=== PATIENT | female | born 2000 | race Two or more races ===

== ENCOUNTER 2022-07-04 18:10 | Emergency (ER) | payer MEDICAID ==
[~2022-07-04] VITALS: Ht 157.5 cm; Wt 58.5 kg
[2022-07-04] MEDS ORDERED: BENZ100C19 PO (21:15)
[2022-07-04] MEDS ORDERED: DEXT1SYP9 PO (21:15)
[2022-07-04] MEDS ORDERED: DexAMETHasone SOD PHOS 4 MG/1ML SDV INJ IM ONE (21:45)
[2022-07-04 22:10] VITALS: BP 101/64
== END 2022-07-04 22:10 | disposition home or self-care (01) ==
LOC: ER 18:10
DX: B34.9 Viral infection, unspecified (principal)
CPT/HCPCS: 71046; 96372; 99283; J1100

== ENCOUNTER 2023-09-28 16:06 | Emergency (ER) | payer MEDICAID ==
[~2023-09-28] VITALS: Ht 157.5 cm; Wt 54.1 kg
[~2023-09-28 16:06] MED LIST: BENZ100C19 PO; DEXT1SYP9 PO
[2023-09-28 16:18] VITALS: BP 98/65; PULSE 77; RESP 16; O2SAT 97
[2023-09-28 17:09] LABS: Urine Bacteria FEW /hpf (None Seen); Urine Blood Negative /uL (Negative); Urine Clarity Clear (Clear); Urine Color Colorless (Yellow); Urine Protein, UAD Negative (Negative); Urine Specific Gravity 1.008 (1.001-1.035); Urine Urobilinogen Normal (Negative); Urine WBC <1 /hpf (0 - 5)
[2023-09-28] MEDS ORDERED: NITR-52 PO (17:47)
== END 2023-09-28 20:39 | disposition home or self-care (01) ==
LOC: ER 16:06
DX: O98.819 Other maternal infectious and parasitic diseases complicating pregnancy, unspecified trimester (principal); R10.2 Pelvic and perineal pain; R82.71 Bacteriuria; Z79.899 Other long term (current) drug therapy; Z3A.01 Less than 8 weeks gestation of pregnancy
CPT/HCPCS: 36415; 81001; 84702

== ENCOUNTER 2023-10-01 16:12 | Emergency (ER) | payer MEDICAID ==
[~2023-10-01] VITALS: Ht 157.5 cm; Wt 55.2 kg
[~2023-10-01 16:12] MED LIST changes: +NITR-52 PO
[2023-10-01 16:42] VITALS: BP 116/59; PULSE 60; RESP 20; O2SAT 98
[2023-10-01 17:25] LABS: Urine Bacteria NONE SEEN /hpf (None Seen); Urine Blood Negative /uL (Negative); Urine Clarity Clear (Clear); Urine Color Colorless (Yellow); Urine Protein, UAD Negative (Negative); Urine Specific Gravity 1.006 (1.001-1.035); Urine Urobilinogen Normal (Negative); Urine WBC <1 /hpf (0 - 5)
== END 2023-10-01 20:02 | disposition home or self-care (01) ==
LOC: ER 16:12
DX: O20.9 Hemorrhage in early pregnancy, unspecified (principal); R10.2 Pelvic and perineal pain; Z3A.01 Less than 8 weeks gestation of pregnancy; Z79.899 Other long term (current) drug therapy
CPT/HCPCS: 36415; 81001; 84702

== ENCOUNTER 2023-10-16 03:57 | Emergency (ER) | payer MEDICAID ==
[~2023-10-16] VITALS: Ht 160 cm; Wt 54.7 kg
[2023-10-16 04:49] LABS: Basophils # (auto) 0 10 ^3/uL (0-0.2); Basophils % (auto) 0.5 % (0.0-2.0); Eosinophils # (auto) 0.1 10 ^3/uL (0-0.8); Eosinophils % (auto) 1.3 % (0.0-7.0); Hematocrit 37.2 % (36.0-46.0); Hemoglobin 12.6 g/dL (12.2-16.2); Lymphocytes # (auto) 2.9 10 ^3/uL (0.4-5.4); Lymphocytes % (auto) 30.8 % (10.0-50.0); Mean Corpuscular Hemoglobin 30.8 pg (28.0-32.0); Mean Corpuscular Volume 90.7 fL (80.0-100.0); Monocytes # (auto) 0.6 10 ^3/uL (0-1.3); Monocytes % (auto) 6.4 % (0.0-12.0); Neutrophils # (auto) 5.7 10 ^3/uL (1.6-8.6); White Blood Cell 9.3 10^3/uL (4.4-10.8)
[2023-10-16 05:00] LABS: Urine Bacteria NONE SEEN /hpf (None Seen); Urine Blood Negative /uL (Negative); Urine Clarity Clear (Clear); Urine Color Colorless (Yellow); Urine Protein, UAD Negative (Negative); Urine Specific Gravity 1.002 (1.001-1.035); Urine Urobilinogen Normal (Negative); Urine WBC <1 /hpf (0 - 5); Urine pH 6.5 (5.0-8.0)
[2023-10-16 05:07] LABS: Alanine Aminotransferase 17 U/L (7-40); Albumin 4.6 g/dL (3.2-4.8); Alkaline Phosphatase 58 U/L (46-116); Anion Gap 7 (5-15); Aspartate Aminotransferase 16 U/L (13-40); BUN/Creatinine Ratio 22.4 (10.0-20.0); Bilirubin, Total 0.4 mg/dL (0.2-1.0); Blood Urea Nitrogen 11 mg/dL (9-23); Calcium 10.1 mg/dL (8.7-10.4); Carbon Dioxide 26 mmol/L (20-30); Chloride 102 mmol/L (98-107); Glucose 89 mg/dL (74-106); Potassium 3.8 mmol/L (3.5-5.1); Sodium 135 mmol/L (136-145); Total Protein 7.4 g/dL (5.7-8.2)
[2023-10-16 09:33] VITALS: BP 120/70; PULSE 71; RESP 18; TEMP 98.2; O2SAT 94
== END 2023-10-16 09:55 | disposition home or self-care (01) ==
LOC: ER 03:57
DX: O20.8 Other hemorrhage in early pregnancy (principal); R10.2 Pelvic and perineal pain; Z3A.01 Less than 8 weeks gestation of pregnancy
CPT/HCPCS: 36415; 76801; 80053; 81001; 84702; 85025

== ENCOUNTER 2024-01-18 22:35 | Observation (INO) | payer MEDICAID ==
[2024-01-18] MEDS ORDERED: PREN-96 PO (22:57)
== END 2024-01-19 00:10 | disposition home or self-care (01) ==
LOC: LDRP 22:35
PROVIDERS: ADMIT Obstetrics & Gynecology; ATTEND Obstetrics & Gynecology
DX: O62.9 Abnormality of forces of labor, unspecified (principal); O26.892 Other specified pregnancy related conditions, second trimester; R10.9 Unspecified abdominal pain; Z3A.20 20 weeks gestation of pregnancy
CPT/HCPCS: 76805; 81002; 94760; G0378